=== PATIENT | male | born 1940 | race Caucasian/White ===

== ENCOUNTER → 2016-10-16 20:58 | Outpatient (CLI) | payer MEDICARE ==
[2016-06-19 15:01] VITALS: BMI 23.4
[~2016-10-16 20:58] MED LIST: ALTACE5 MG PO; LIPITOR40 MG PO; PREVACID30 MG PO; ZITHROMAX250 MG PO
[2016-10-19 12:08] LABS: HSV-2 IGG >23.60 index (0.00-0.90)
== END | disposition home or self-care (01) ==
LOC: D.LABREF 20:58
PROVIDERS: Family Medicine
DX: K13.70 Unspecified lesions of oral mucosa (principal)

== ENCOUNTER → 2017-08-05 12:06 | Outpatient (CLI) | payer MEDICARE ==
[2016-06-19 15:01] VITALS: BMI 23.4
[~2017-08-05 12:06] MED LIST changes: +BAYER CHEWABLE81 MG PO; +HYDROCODONE-APA1 TAB PO; +NORVASC5 MG PO; +green tea extract PO
[2017-08-06 17:10] LABS: HEPATITIS C ANTIBODY 0.1 (0.0-0.9)
== END | disposition home or self-care (01) ==
LOC: D.LAB 12:06 → D.US 13:30
PROVIDERS: Internal Medicine Cardiovascular Disease
DX: Z01.812 Encounter for preprocedural laboratory examination (principal); I65.23 Occlusion and stenosis of bilateral carotid arteries

== ENCOUNTER 2017-08-11 05:00 | Inpatient (IN) | payer MEDICARE ==
[2017-08-07 08:58] LABS: HEMOGLOBIN 15.9 g/dL (13.5-17.5); MCH 33.5 pg (26.0-34.0); MCHC 34.6 g/dL (31.0-37.0); MEAN PLATELET VOLUME 10.8 fL (7.4-10.4); RBC 4.74 10x6/uL (4.20-6.10); RDW 13.1 % (11.5-14.5); WBC 6.4 10x3/uL (4.8-10.8)
[2017-08-07 09:10] LABS: ALBUMIN 3.8 g/dL (3.4-5.0); ANION GAP 10.5 mmol/L (8-16); BILIRUBIN - TOTAL 1.13 mg/dL (0.2-1.3); CALCIUM 9.2 mg/dL (8.5-10.1); CARBON DIOXIDE 29.6 mmol/L (21.0-32.0); CREATININE - SERUM 1.1 mg/dL (0.6-1.3); POTASSIUM - SERUM 4.1 mmol/L (3.5-5.1); PROTEIN - SERUM 7.7 g/dL (6.4-8.2)
[2017-08-07 09:17] LABS: APPEARANCE HAZY (CLEAR); BACTERIA FEW /hpf (NONE SEEN); BILIRUBIN NEGATIVE (NEGATIVE); COLOR DK YELLOW (YELLOW); EPITHELIAL CELLS OCC /hpf (0-5); GLUCOSE NEGATIVE (NEGATIVE); KETONE NEGATIVE (NEGATIVE); NITRITE NEGATIVE (NEGATIVE); PROTEIN TRACE mg/dL (NEGATIVE); RED CELLS - URINE RARE /hpf (0-5); SPECIFIC GRAVITY 1.025 (1.005-1.020); WHITE CELLS - URINE 0-5 /hpf (0-5)
[2017-08-07 09:18] LABS: HYALINE CAST OCC /lpf (NONE SEEN); MUCUS >1+ /lpf (NONE SEEN); WAXY CAST RARE /lpf (NONE SEEN)
[2017-08-07 09:20] LABS: APTT 28.7 SECONDS (22.8-39.4); PROTIME 12.8 SECONDS (11.6-15.0)
[2017-08-11] VITALS (49 sets, daily range): BP systolic 90–121; BP diastolic 50–78; BMI 24.3; BMI 23.8
[~2017-08-11] VITALS: Ht 188 cm; Wt 81.6 kg
--- NOTE | ~2017-08-11 | OP ---
PATIENT NAME: FLOYD HERRING MEDICAL RECORD: [id number] :41 [facility] ADMISSION DATE:08/11/17 SURGEON: POP GLYNN MD DATE OF OPERATION: 08/11/2017 SURGEON: Pop Glynn MD ANESTHESIA: General endotracheal, Dr. Callahan. OPERATION PERFORMED: 1. Right thoracotomy and right lower lobe resection. 2. Mediastinal dissection. PREOPERATIVE DIAGNOSIS: Carcinoma, right lower lobe. POSTOPERATIVE DIAGNOSIS: Carcinoma, right lower lobe. INDICATION FOR OPERATION: Carcinoma, right lower lobe. FINDINGS OF THE OPERATION: Tumor mass, right lower lobe. There was radiation fibrosis around the pulmonary arteries, bronchus, pulmonary vein as well as multiple adhesions to the chest wall. There were 2 nodes at level 7. There were no nodes at level 8, 9, 4 or 3. ESTIMATED BLOOD LOSS: Less than 150 mL. DESCRIPTION OF PROCEDURE: After informed consent, adequate preoperative medication and evaluation, the patient was brought to the operating room, placed on the table in the supine position. After induction of general endotracheal anesthesia and application of appropriate monitoring devices, flexible fiberoptic bronchoscopy and placement of a double lumen endotracheal tube, the patient was turned in a left lateral decubitus position. The right chest prepped and draped in a sterile field, protecting the neurological structures and pressure points. A right posterolateral thoracotomy incision was made and dissection carried down the fascia. Hemostasis maintained with electrocautery. The fifth interspace was opened. Adhesions were lysed from the chest wall, lower lobe, middle lobe and upper lobe. Attention was then turned more towards the diaphragm and the adhesions lysed between the lung and the diaphragm. The inferior pulmonary ligament was mobilized. There were no nodes at level 8 or 9. The inferior pulmonary vein was then surrounded with a vessel loop. The major fissure was complete. The pulmonary artery was dissected proximally and distally. There was a difficult dissection due to the fibrosis in the area; however, the artery to the lower lobe was dissected free of surrounding structures. The anterior fissure was completed. Attention was then turned posteriorly to the bronchus. The bronchus to the lower lobe was identified from the bronchus intermedius. Attention was then turned toward the pulmonary artery which was divided. The posterior fissure was then completed and the bronchus identified. Due to the large amount of fibrosis, the blood supply to the bronchus was protected. The bronchus was then divided just distal to the middle lobe bronchi utilizing a TA 30-4.8 stapler. This was sent to pathology. Dissection was then carried out along the posterior lymph nodes at level 7 and the pleura mobilized. The lung was tested for air leak. There were several small air leaks from adhesions that were oversewn with a 6-0 Prolene suture. The bronchus was then tested, the bronchus was secure. BioGlue was used on the bronchial stump and posterior fissure suture line. The bronchus was then OPERATIVE REPORT [id number] FLOYD HERRING covered with a pleural flap. The chest was irrigated. Instrument count and sponge count were correct times 2. The lung was reinflated without major air leak. Two #32 chest tubes were brought in through the anterior and mid axillary lines and placed in the right hemithorax, one anteriorly and superiorly and one inferiorly and posteriorly. Chest was again irrigated. Instrument count and sponge count were correct times 2. Chest was closed in layers utilizing #2 Vicryl pericostal sutures, #1 Vicryl on the latissimus and 2-0 Vicryl on the subcutaneous tissue and skin approximated with skin melani. Sterile dressings were applied. The patient tolerated the procedure well and was transferred to the CV ICU in satisfactory condition. TRANSINT:[id number] Voice Confirmation ID: [id number] DOCUMENT ID: [id number] POP GLYNN MD at 1319 CC: [id number] DICTATION DATE: 08/11/17 1223 PROJECT MANAGEMENT DIRECTOR: 08/11/17 1346 ADM IN [id number] [place] [id number]
--- NOTE | ~2017-08-11 | HP ---
PATIENT: FLOYD HERRING MEDICAL RECORD: [id number] ACCOUNT: [id number] LOCATION:[facility] : 41 ADMISSION DATE: 08/11/17 HISTORY AND PHYSICAL EXAMINATION NameFLOYD HERRING (77yo, M) ID# [id number]. Date/Time08/05/2017 11:25ODMEP1941Service Dept.NPP_[facility] ClinicProviderEDRAYMUNDO GALAN MDInsuranceMed Primary: [facility] (MEDICARE REPLACEMENT/ADVANTAGE - PPO) Insurance # : [id number] Policy/Group # : [id number] Employer Name : RETIRED Prescription: ESI1 - Member is eligible. Chief Complaint Lung cancer RLL CANCER, SQUAMOUS CELL Patient's Care Team Referring Provider: LUIS CARLOS FRANCISCO MD: [address] [place] [address], [place] [address], , Vitals BP:100/64 sitting L arm 08/05/2017 11:12 amBP Cuff Size:adult 08/05/2017 11:12 amHR:64,REG 08/05/2017 11:12 amHt:6 ft 2 in 08/05/2017 11:12 amWt:188 lbs 08/05/2017 11:12 amNotes:HAD LASER ABLATION summer, THEN HAD RECURRENCE OF LUNG MASS ON JULY 2017 SCANNING 08/05/2017 11:13 amBMI:24.1 08/05/2017 11:12 amAllergies Reviewed Allergies NO KNOWN DRUG ALLERGIESMedications Reviewed Medications amLODIPine 5 mg gtukqr81/18/17 filledMEDCOlansoprazole 30 mg capsule,delayed release Take 1 capsule(s) every day by oral route.07/30/17 enteredKathy Wilsonondansetron [address] 1 tablet(s) every 8 hours by translingual route for 2 days.07/30/17 enteredKathy Wilsonramipril 5 mg awwupvm15/18/17 filledMEDCOProblems Reviewed Problems Primary malignant neoplasm of lung - Onset: 07/30/2017, Right Family History Reviewed Family History Father- Myocardial infarctionMother- Old-ageSister- Neoplasm of brainSocial History Reviewed Social History Cardiology Family history of heart disease?: Y Smoking Status: Former smoker (Notes: QUIT 2009) Smoker (2 PPD) High Cholesterol: Y High blood pressure: Y Tobacco-years of use: 20 Surgical History Reviewed Surgical History CABG - 08/03/1991 - X5 KNEE SURGERY 1984 Past Medical History HISTORY AND PHYSICAL [id number] FLOYD HERRING Reviewed Past Medical History Cancer: Y Heart Disease: Y Hyperlipidemia: Y Hypertension: Y Liver Disease: Y - YELLOW JAUNDICE 40 YEARS AGO, THEN SAID HEPATITIS. OFF WORK SEVERAL WEEKS, NO RECURRENCE OF SYMPTOMS. Documents for Discussion N/A Screening None recorded. HPI Fatigue Reported by patient. Quality: continuous Severity: mild Duration: intermittent; symptoms lasting over 2 weeks Timing: worse Modifying Factors: new stressors in life Associated Symptoms: no drug/alcohol withdrawal; no depression; no anxiety; no sleep disturbances; no snoring; periods of not breathing (apnea) have not been observed; no recent change in weight carcinoma right lower lobe Status post chemotherapy and radiation ROS Patient reports no fever, no night sweats, no significant weight gain, no significant weight loss, and no exercise intolerance. He reports no dry eyes, no irritation, and no vision change. He reports no difficulty hearing and no ear pain. He repor ts no frequent nosebleeds and no nose/sinus problems. He reports no sore throat, no bleeding gums, no snoring, no dry mouth, no mouth ulcers, no oral abnormalities, and no teeth problems. He reports no jugular vein distension and no swollen glands. He rep o rts no chest pain, no arm pain on exertion, no shortness of breath when walking, no shortness of breath when lying down, no palpitations, and no known heart murmur. He reports no cough, no wheezing, no shortness of breath, and no coughing up blood. He rep o rts no abdominal pain, no vomiting, normal appetite, no diarrhea, not vomiting blood, no nausea, and no constipation. He reports no incontinence, no difficulty urinating, no hematuria, and no increased frequency. He reports no muscle aches, no muscle weak n ess, no arthralgias/joint pain, no back pain, and no swelling in the extremities. He reports no abnormal mole, no jaundice, and no rashes. He reports no loss of consciousness, no weakness, no numbness, no seizures, no dizziness, and no headaches. He repor ts no depression, no sleep disturbances, feeling safe in relationship, and no alcohol abuse. He reports no fatigue. He reports no swollen glands and no bruising. He reports no runny nose, no sinus pressure, no itching, no hives, and no frequent sneezing. ROS as noted in the HPI Physical Exam Patient is a 77-year-old male. Constitutional: General Appearance well nourished and developed and healthy-appearing. Level of Distress NAD. Ambulation ambulating normally. Cardiovascular: Apical Impulse not displaced or no thrill. Heart Auscultation normal s1 and s2; no murmurs, rubs, or gallops; and RRR. Arterial Pulses no abdominal aorta bruits, femoral bruits, or popliteal bruits and 2+ bilateral, carotid 2+ bilateral, femoral 2+ bilateral, popliteal 2+ bilateral, and dorsalis HISTORY AND PHYSICAL [id number] NEVAEH,FLOYD T pedis 2+ bilateral. Edema no edema or varicosities. Lungs: Repiratory Effort no dyspnea. Percussion no hyperresonance or dullness or flatness. Auscultation no wheezing, rhonchi, or rales / crackles and breathing sounds normal, good air movement, and CTA except as noted. Abdomen: Bowl Sounds normal. Inspection and Palpation no tenderness, guarding, masses, or rebound tenderness and soft and non-distended. Liver non-tender and no hepatomegaly. Spleen non-tender and no splenomegaly. Hernia none palpable. Musculoskeletal System: Gait And Stance normal gait and stance. Digits and Nails normal nails and no cyanosis. Neurologic: Cranial Nerves grossly intact. Reflexes DTRs 2+ bilaterally throughout. Sensation grossly intact. Lymph Nodes: Lymph Nodes no cervical LAD, supraclavicular LAD, axillary LAD, or inguinal LAD. Eyes: Lids and Conjunctivae no discharge or pallor and non-injected. Pupils PERRLA. Cornea grossly intact. EOM EOMI. Lens clear. Sclerae non-icteric. Neck: Neck no masses, enlarged lymph nodes, or carotid bruits and supple and trachea midline. Thyroid no enlargement or nodules and non-tender. Skin: Inspection and Palpation no rash, lesions, ulcers, jaundice, or abnormal nevi. Assessment / Plan carcinoma right lower lobe status post chemotherapy and radiation Resolution lymph node metastases by PET scan 1. Primary malignant neoplasm of lung - Right C34.90: Malignant neoplasm of unspecified part of unspecified bronchus or lung Discussion Notes I have discussed his disease process with him in detail as well as the alternative methods of treatment were discussed right lower lobe resection and the expected benefits and risks which include bleeding, infection, stroke, , and the imponderables. Juan Miguel drake understands all of the above and wishes to proceed with surgery Carotid Doppler study and hepatitis panel today MILTON GALAN MD at 1337 CC: [id number] DICTATION DATE: 08/05/17 1100 PALLET RECTIFIER: RONNI 08/06/17 1439 PRE IN [facility] [address] [place] [address]
[~2017-08-11 05:00] MED LIST changes: -HYDROCODONE-APA1 TAB PO
[2017-08-12] VITALS (93 sets, daily range): BP systolic 90–134; BP diastolic 43–86; Ht 188 cm; Wt 81.6 kg
[2017-08-12 06:15] LABS: HEMATOCRIT 38.3 % (42.0-54.0); HEMOGLOBIN 12.9 g/dL (13.5-17.5); MCH 32.6 pg (26.0-34.0); MCHC 33.7 g/dL (31.0-37.0); MCV 96.7 fL (80.0-100.0); MEAN PLATELET VOLUME 10.6 fL (7.4-10.4); RBC 3.96 10x6/uL (4.20-6.10); RDW 13.1 % (11.5-14.5); WBC 12.9 10x3/uL (4.8-10.8)
[2017-08-12 06:49] LABS: ALBUMIN 2.8 g/dL (3.4-5.0); ANION GAP 12.9 mmol/L (8-16); BILIRUBIN - TOTAL 1.4 mg/dL (0.2-1.3); CALCIUM 8.4 mg/dL (8.5-10.1); CARBON DIOXIDE 24.1 mmol/L (21.0-32.0); CREATININE - SERUM 1.2 mg/dL (0.6-1.3); PROTEIN - SERUM 5.9 g/dL (6.4-8.2)
[2017-08-13] VITALS (64 sets, daily range): BP systolic 016–146; BP diastolic 47–96
[2017-08-13 06:28] LABS: HEMATOCRIT 33.6 % (42.0-54.0); HEMOGLOBIN 11.7 g/dL (13.5-17.5); MCH 33.2 pg (26.0-34.0); MCHC 34.8 g/dL (31.0-37.0); MCV 95.5 fL (80.0-100.0); MEAN PLATELET VOLUME 9.8 fL (7.4-10.4); RBC 3.52 10x6/uL (4.20-6.10); RDW 13.2 % (11.5-14.5); WBC 11.6 10x3/uL (4.8-10.8)
[2017-08-13 06:50] LABS: ALBUMIN 2.5 g/dL (3.4-5.0); ALKALINE PHOSPHATASE 52 U/L (46-116); ALT (SGPT) 38 U/L (10-68); CALC OSMOLALITY 290 mosm/kg (275-300); CALCIUM 7.9 mg/dL (8.5-10.1); CARBON DIOXIDE 25.6 mmol/L (21.0-32.0); CHLORIDE - SERUM 108 mmol/L (98-107); GLUCOSE 127 mg/dL (74-106); POTASSIUM - SERUM 4.4 mmol/L (3.5-5.1); PROTEIN - SERUM 5.2 g/dL (6.4-8.2); SODIUM 143 mmol/L (136-145); UREA NITROGEN 23 mg/dL (7-18)
[2017-08-13 06:55] LABS: CREATININE - SERUM 0.7 mg/dL (0.6-1.3); eGFR NON AFRICAN AMERICAN > 90 mL/min (90-120)
[2017-08-14] VITALS (48 sets, daily range): BP systolic 12–160; BP diastolic 59–85
[2017-08-14 06:39] LABS: HEMATOCRIT 34.5 % (42.0-54.0); HEMOGLOBIN 11.5 g/dL (13.5-17.5); MCH 32.7 pg (26.0-34.0); MCHC 33.3 g/dL (31.0-37.0); MEAN PLATELET VOLUME 10.2 fL (7.4-10.4); RBC 3.52 10x6/uL (4.20-6.10); RDW 13.4 % (11.5-14.5); WBC 9.9 10x3/uL (4.8-10.8)
[2017-08-14 07:00] LABS: ALBUMIN 2.5 g/dL (3.4-5.0); ALKALINE PHOSPHATASE 58 U/L (46-116); ALT (SGPT) 35 U/L (10-68); CALC OSMOLALITY 282 mosm/kg (275-300); CALCIUM 8.1 mg/dL (8.5-10.1); CARBON DIOXIDE 29.9 mmol/L (21.0-32.0); CHLORIDE - SERUM 105 mmol/L (98-107); CREATININE - SERUM 0.7 mg/dL (0.6-1.3); GLUCOSE 106 mg/dL (74-106); POTASSIUM - SERUM 4.2 mmol/L (3.5-5.1); PROTEIN - SERUM 5.5 g/dL (6.4-8.2); SODIUM 141 mmol/L (136-145); UREA NITROGEN 18 mg/dL (7-18); eGFR NON AFRICAN AMERICAN > 90 mL/min (90-120)
[2017-08-15] VITALS (22 sets, daily range): BP systolic 93–160; BP diastolic 58–93
[2017-08-15 05:56] LABS: HEMATOCRIT 33.9 % (42.0-54.0); HEMOGLOBIN 11.3 g/dL (13.5-17.5); MCH 32.4 pg (26.0-34.0); MCHC 33.3 g/dL (31.0-37.0); MCV 97.1 fL (80.0-100.0); MEAN PLATELET VOLUME 10.4 fL (7.4-10.4); RBC 3.49 10x6/uL (4.20-6.10); RDW 13.2 % (11.5-14.5); WBC 7.6 10x3/uL (4.8-10.8)
[2017-08-15 06:23] LABS: ALBUMIN 2.5 g/dL (3.4-5.0); ALKALINE PHOSPHATASE 57 U/L (46-116); ALT (SGPT) 32 U/L (10-68); CALC OSMOLALITY 280 mosm/kg (275-300); CALCIUM 8.8 mg/dL (8.5-10.1); CARBON DIOXIDE 31.8 mmol/L (21.0-32.0); CHLORIDE - SERUM 101 mmol/L (98-107); CREATININE - SERUM 0.7 mg/dL (0.6-1.3); GLUCOSE 106 mg/dL (74-106); SODIUM 139 mmol/L (136-145); UREA NITROGEN 21 mg/dL (7-18); eGFR NON AFRICAN AMERICAN > 90 mL/min (90-120)
[2017-08-15 06:24] LABS: POTASSIUM - SERUM 3.5 mmol/L (3.5-5.1)
[2017-08-16] VITALS (23 sets, daily range): BP systolic 115–150; BP diastolic 69–111
[2017-08-17] VITALS (9 sets, daily range): BP systolic 118–136; BP diastolic 77–87
[2017-08-17] MEDS ORDERED: HYDROCODONE-APA1 TAB PO (08:05)
== END 2017-08-17 12:00 | disposition home or self-care (01) | DRG 164 ==
LOC: D.SDCHOLD 05:00 → D.CVICU 05:00 → D.SDCHOLD 07:30 → D.CVICU 09:31
PROVIDERS: Internal Medicine Cardiovascular Disease
PROC: 0BTF0ZZ Resection of Right Lower Lung Lobe, Open Approach (ICD-10-PCS; principal; 2017-08-11 07:30)
PROC: 07B70ZZ Excision of Thorax Lymphatic, Open Approach (ICD-10-PCS; 2017-08-11 07:30)
DX: R91.1 Solitary pulmonary nodule (principal); J98.11 Atelectasis; I25.10 Atherosclerotic heart disease of native coronary artery without angina pectoris; E78.5 Hyperlipidemia, unspecified; I10 Essential (primary) hypertension; J44.9 Chronic obstructive pulmonary disease, unspecified; K21.9 Gastro-esophageal reflux disease without esophagitis; D64.9 Anemia, unspecified; I95.81 Postprocedural hypotension; R09.02 Hypoxemia

== ENCOUNTER → 2017-09-04 08:29 | Outpatient (CLI) | payer MEDICARE ==
[2017-08-12 10:34] VITALS: BMI 24.3
[~2017-09-04 08:29] MED LIST changes: +HYDROCODONE-APA1 TAB PO
== END | disposition home or self-care (01) ==
LOC: D.RAD 08:00
DX: J91.8 Pleural effusion in other conditions classified elsewhere (principal)

== ENCOUNTER → 2017-12-03 14:03 | Outpatient (CLI) | payer MEDICARE ==
[2017-08-12 10:34] VITALS: BMI 24.3
== END | disposition home or self-care (01) ==
LOC: D.CT 14:03
DX: C34.90 Malignant neoplasm of unspecified part of unspecified bronchus or lung (principal)

== ENCOUNTER → 2018-03-09 10:52 | Outpatient (CLI) | payer MEDICARE ==
[2017-08-12 10:34] VITALS: BMI 24.3
== END | disposition home or self-care (01) ==
LOC: D.RAD 10:30
DX: C34.31 Malignant neoplasm of lower lobe, right bronchus or lung (principal)

== ENCOUNTER 2018-09-28 12:42 | Day surgery (SDC) | payer MEDICARE ==
[~2018-09-28] VITALS: Ht 188 cm; Wt 82.7 kg
[2018-09-28 13:26] LABS: HEMATOCRIT 47.8 % (42.0-54.0); HEMOGLOBIN 16.1 g/dL (13.5-17.5); MCH 32.3 pg (26.0-34.0); MCHC 33.7 g/dL (31.0-37.0); MEAN PLATELET VOLUME 10.5 fL (7.4-10.4); RBC 4.98 10x6/uL (4.20-6.10); RDW 13.3 % (11.5-14.5); WBC 7.7 10x3/uL (4.8-10.8)
[2018-09-28 15:59] VITALS: BP 140/91; Ht 188 cm; Wt 82.7 kg
--- NOTE | 2018-09-28 18:19 | NUR ---
DC INSTRUCTIONS GIVEN TO PT. STATES UNDERSTANDING. DC'D IV CATH FULLY INTACT,
--- NOTE | 2018-09-28 18:20 | NUR ---
DR. KAN GAVE VERBAL ORDER TO DC HOME
--- NOTE | 2018-09-28 18:25 | NUR ---
PT LEFT UNIT VIA WC AT 182
--- NOTE | 2018-09-30 11:13 | HP ---
PATIENT: FLOYD HERRING MEDICAL RECORD: [id number] ACCOUNT: [id number] [facility] : 41 ADMISSION DATE: 09/28/18 PCP: FRANCO TAVAREZ DO HISTORY AND PHYSICAL EXAMINATION CHIEF COMPLAINT: Mass. HISTORY OF PRESENT ILLNESS: The patient has a mass that lit up on recent PET scan. He has undergone a prior resection for lung cancer. It is my hope that I could perform an endoscopy and perhaps obtain a tissue diagnosis of this mass. I discussed this with Dr. Glynn. The mass is around the location of station 8 or station 9. It is inferior to the tracheal bifurcation. ALLERGIES: No known drug allergies. HOME MEDICATIONS: Aspirin, Lipitor, Prevacid, and Altace. PAST MEDICAL AND SURGICAL HISTORY: Thoracotomy with lobectomy, coronary artery disease, history of myocardial infarction, history of CABG times 5, gastroesophageal reflux, and hypertension. PHYSICAL EXAMINATION: GENERAL: The patient does not appear acutely ill. He does appear chronically ill. VITAL SIGNS: Reviewed. HEENT: External ears appear normal. Extraocular movements are intact. NECK: Trachea is midline. CHEST: No intercostal retractions. PULMONARY: Mildly labored. IMPRESSION: Suspicious lesion that lights up on PET scan in a patient who has had a lung carcinoma. PLAN: EGD with possible biopsies. TRANSINT:[id number] Voice Confirmation ID: [id number] DOCUMENT ID: [id number] FRANCO KAN MD at 1113 CC: SHANIQUA KERN MD and MILTON GLYNN [id number] DICTATION DATE: 09/28/181821 MACHINE SET UP OPERATOR PAPER GOODS: 09/28/182237 [facility] 09/28/18 [address] [place] [address]
--- NOTE | 2018-09-30 11:13 | OP ---
PATIENT NAME: FLOYD HERRING MEDICAL RECORD: [id number] :42 LOCATION:D.OPS ADMISSION DATE: SURGEON: ABIMAEL KAN MD DATE OF OPERATION: 09/28/2018 PREOPERATIVE DIAGNOSES: 1. Neoplasm of the mediastinum. 2. History of lung cancer. POSTOPERATIVE DIAGNOSES: 1. Neoplasm of the mediastinum. 2. History of lung cancer. 3. Nearly obstructing esophageal mass, which I could not safely biopsy. PROCEDURE: Esophagogastroduodenoscopy without biopsy. SURGEON: Abimael Kan MD CORE OVEN TENDER: None. BLOOD LOSS: Minimal. ANESTHESIA: IV sedation. COMPLICATIONS: None. The patient has on PET scan a bright area that abut the esophagus. I have been asked to investigate this area and perhaps obtain a tissue diagnosis as we fear the patient has a metastatic lung neoplasm. OPERATIVE COURSE: The patient was conveyed to endoscopy suite electively on 09/28/2018. IV sedation was induced by the anesthesia staff. A bite block was inserted. After the bite block was inserted, a gastroscope was inserted into the mouth. It advanced easily into the hypopharynx. The esophagus was easily intubated. At 30 cm from the incisors, I noted a posterior lying esophageal mass. I was able to bump this with my gastroscope and this appeared to be solid and not fluid filled. I was unable to transilluminate this mass. This mass was nearly obstructing. Despite the fact the patient states he has had no dysphagia. I was able to traverse the mass. The mass was 3 cm in diameter. I then traveled down to a small hiatal hernia and the pinched point was at 37 cm. The stomach was intubated. A retroflexed and angulus views were obtained. The duodenum was intubated and I advanced to the third portion of the duodenum. I then slowly withdrew the endoscope. I have explained the findings to Dr. Galan. It was going to be too risky to try to obtain deep biopsies of this mass and could predispose the patient to esophageal perforation and mediastinitis. I am going to recommend the patient be evaluated by someone who has expertise in an endoscopic ultrasound and perhaps a cytology could be obtained through a needle aspiration. TRANSINT:[id number] Voice Confirmation ID: [id number] DOCUMENT ID: [id number] OPERATIVE REPORT [id number] FLOYD HERRING ABIMAEL KAN MD at 1113 CC: MILTON GALAN [id number] DICTATION DATE: 09/29/18 1847 FEATHER STITCHER: 09/29/18 4325 [facility] 09/28/18 [id number] [place] [address]
== END 2018-09-28 18:23 | disposition home or self-care (01) ==
LOC: D.OPS 12:42
PROVIDERS: ATTEND Surgery
DX: D38.3 Neoplasm of uncertain behavior of mediastinum (principal); Z85.118 Personal history of other malignant neoplasm of bronchus and lung; K22.8 Other specified diseases of esophagus; K44.9 Diaphragmatic hernia without obstruction or gangrene; I25.10 Atherosclerotic heart disease of native coronary artery without angina pectoris; I25.2 Old myocardial infarction; Z95.1 Presence of aortocoronary bypass graft; I10 Essential (primary) hypertension; Z79.82 Long term (current) use of aspirin; Z79.899 Other long term (current) drug therapy; Z01.812 Encounter for preprocedural laboratory examination

== ENCOUNTER → 2019-08-01 13:40 | Outpatient (CLI) | payer MEDICARE ==
[2018-09-28 15:59] VITALS: BMI 23.4
== END | disposition home or self-care (01) ==
LOC: D.RT 13:40
PROVIDERS: ATTEND Internal Medicine Pulmonary Disease
DX: J44.9 Chronic obstructive pulmonary disease, unspecified (principal)

== ENCOUNTER → 2019-10-06 09:16 | Outpatient (CLI) | payer MEDICARE ==
[2018-09-28 15:59] VITALS: BMI 23.4
== END | disposition home or self-care (01) ==
LOC: D.RAD 09:16
PROVIDERS: ATTEND Internal Medicine Cardiovascular Disease
DX: R06.00 Dyspnea, unspecified (principal)

== ENCOUNTER → 2021-01-11 12:19 | Outpatient (CLI) | payer MEDICARE ==
[2018-09-28 15:59] VITALS: BMI 23.4
[2021-01-12 17:08] LABS: ACID FAST SMEAR Negative (()); AFB SPECIMEN PROCESSING Concentration (())
[2021-01-14 09:08] LABS: FUNGUS STAIN Final report (())
== END | disposition home or self-care (01) ==
LOC: D.LABREF 12:19
PROVIDERS: ATTEND Nurse Practitioner Family
DX: R05 Cough (principal)